=== PATIENT | female | born 1965 | race Caucasian/White ===

== ENCOUNTER 2024-08-01 14:20 | Outpatient (CLI) | payer OTHER | END 2024-08-01 14:21 | disposition home or self-care (01) | LOC: NAV RAD 14:20 | PROVIDERS: ATTEND Family Medicine | DX: M06.9 Rheumatoid arthritis, unspecified (principal); K21.9 Gastro-esophageal reflux disease without esophagitis; M34.9 Systemic sclerosis, unspecified; M47.816 Spondylosis without myelopathy or radiculopathy, lumbar region; M51.36 Other intervertebral disc degeneration, lumbar region | CPT/HCPCS: 71046; 72100 ==